=== PATIENT | male | born 1965 | race Two or more races ===

== ENCOUNTER 2018-09-21 15:00 | Emergency (ER) | payer OTHER ==
[~2018-09-21] VITALS: Ht 175.3 cm; Wt 69.9 kg
--- NOTE | 2018-09-21 15:29 | NUR ---
TEXTED DR. MACIAS FOR MRI APPROVAL.
[2018-09-21] MEDS ORDERED: IV NS 0.9% 500 ML BAG IV ONE (15:30)
[2018-09-21 15:35] LABS: BASOPHILS # (AUTO) 0.1 /CMM (0.0-0.2); BASOPHILS % (AUTO) 0.8 % (0.0-2.0); EOSINOPHILS % (AUTO) 1.7 % (0.0-6.0); HEMATOCRIT 44 % (39-51); LYMPHOCYTES # (AUTO) 2.4 /CMM (0.8-4.8); LYMPHOCYTES % (AUTO) 31.1 % (20.0-44.0); MEAN CORPUSCULAR HGB CONC 34 g/dl (31.0-36.0); MEAN CORPUSCULAR VOLUME 93 fL (80-96); MONOCYTES # (AUTO) 0.6 /CMM (0.1-1.30); MONOCYTES % (AUTO) 7.8 % (2.0-12.0); NEUTROPHILS # (AUTO) 4.6 /CMM (1.8-8.9); NEUTROPHILS % (AUTO) 58.6 % (43.0-81.0); PLATELET COUNT (AUTO) 298 /CMM (150-450); RED BLOOD CELL COUNT(AUTO) 4.69 MIL/uL (4.5-6.0); WHITE BLOOD COUNT (AUTO) 7.8 K/uL (4.3-11.0)
--- NOTE | 2018-09-21 15:40 | NUR ---
EUFEMIA FROM THE STREET C/O LOWER BACK PAIN,NO RECENT TRAUMA, PATIENT A/OX4, NO DISTRESS NOTED, BREATHING EVEN AND UNLABORED. KEPT COMFORTABLE, WILL MONITOR.
[2018-09-21 15:44] LABS: CALCIUM, SERUM 8.7 mg/dL (8.5-10.1); CARBON DIOXIDE 34 mmol/L (21-32); CHLORIDE 104 mmol/L (98-107); CREATININE 0.6 mg/dL (0.6-1.3); GLUCOSE 100 mg/dL (74-106); SODIUM SERUM 141 mmol/L (136-145); UREA NITROGEN, BLOOD 16 mg/dL (7-18)
[2018-09-21 15:49] LABS: ALANINE AMINOTRANSFERASE 22 U/L (12-78); ALBUMIN 3.8 g/dL (3.4-5.0); ALKALINE PHOSPHATASE 117 U/L (46-116); ASPARTATE AMINOTRANSFERASE 15 U/L (15-37); BILIRUBIN,DIRECT 0.1 mg/dL (0.0-0.2); BILIRUBIN,TOTAL 0.3 mg/dL (0.2-1.0)
--- NOTE | 2018-09-21 16:37 | NUR ---
PATIENT TAKEN TO MRI.
--- NOTE | 2018-09-21 19:05 | NUR ---
Patient's homeless, homeless waiver signed, copy of resources provided, given jacket and shoes, tap card provided. Patient discharged to home in stable condition. Written and verbal after care instructions given. Patient verbalizes understanding of instruction.
[2018-09-21 19:26] VITALS: BP 132/76
== END 2018-09-21 19:26 | disposition home or self-care (01) ==
LOC: ER 15:02
DX: R53.1 Weakness (principal); Z60.2 Problems related to living alone
CPT/HCPCS: 36415; 70450; 72148; 80048; 80076; 80305; 80307; 84484; 85025; 85730; 93005; 99284; J7040; G0480

== ENCOUNTER 2019-02-16 14:03 | Emergency (ER) | payer OTHER ==
[~2019-02-16] VITALS: Ht 167.6 cm; Wt 77.1 kg
[2019-02-16 14:12] VITALS: BP 135/81
[2019-02-16] MEDS ORDERED: HYDROCODONE/APAP 5/325MG 1 EACH TABLET PO ONE (14:30)
[2019-02-16] MEDS ORDERED: HYDROCODONE/APAP 5/325MG 1 EACH TABLET ONE (14:50)
== END 2019-02-16 15:32 ==
LOC: ER 14:09
DX: S05.11XA Contusion of eyeball and orbital tissues, right eye, initial encounter (principal); E78.00 Pure hypercholesterolemia, unspecified; G89.29 Other chronic pain; Y04.0XXA Assault by unarmed brawl or fight, initial encounter; Y93.89 Activity, other specified; Y92.89 Other specified places as the place of occurrence of the external cause; Y99.8 Other external cause status
CPT/HCPCS: 70480-TC